=== PATIENT | female | born 1955 | race Caucasian/White ===

== ENCOUNTER 2017-02-18 06:38 | Emergency (ER) | payer OTHER ==
[2017-02-18 07:06] VITALS: BP 126/79; PULSE 74; TEMP 97.6; BMI 31.4
--- NOTE | 2017-02-18 07:13 | PDOC ---
History of Present Illness - General Chief Complaint: Back Pain Stated Complaint: BACK PAIN/ NAUSEU Time Seen by Provider: 02/18/17 07:04 - History of Present Illness Initial Comments: 02/18/17 07:48 The patient is a 61 year old female with a history of HTN, DM, HLD who presents for evaluation of right sided lower back pain. The patient reports gradual onset of right sided lower back/sacral pain with radiation down her right leg. She states that she was taking Advil with good relief, however stopped taking the medication for concern of masking her symptoms. She reports that her pain acutely worsened after waking up this morning prompting her presentation to the ED today. She denies numbness, weakness or urinary incontinence. She denies saddle anesthesia as well. She denies fevers, chills, SOB, chest pain, abdominal pain, or changes with urination or bowel movements. Past History - Past Medical History Allergies/Adverse Reactions: Allergies Allergy/AdvReac Type Severity Reaction Status Date / Time codeine [Codeine] Allergy Mild Verified 02/18/17 07:07 acetaminophen [From Percocet] Allergy Verified 02/18/17 07:07 lactose Allergy Verified 02/18/17 07:07 meperidine HCl [From Demerol] Allergy Verified 02/18/17 07:07 oxycodone HCl [From Percocet] Allergy Verified 02/18/17 07:07 Home Medications: Ambulatory Orders Aspirin [ASA -] 81 mg PO DAILY 02/18/17 Atenolol [Tenormin] 25 mg PO DAILY 02/18/17 Cyclobenzaprine HCl [Flexeril 10 mg] 10 mg PO BID PRN #20 tablet 02/18/17 Hydrochlorothiazide [Hctz -] 12.5 mg PO DAILY 02/18/17 Metformin HCl [Glucophage -] 500 mg PO BID 02/18/17 Simvastatin [Zocor -] 20 mg PO HS 02/18/17 Anemia: No Asthma: No Cancer: No Cardiac Disorders: Yes (palpitations) CVA: No COPD: No CHF: No DVT: No Dementia: No Diabetes: (pre diabetic) GI Disorders: Yes (GERD) Disorders: No HTN: Yes Hypercholesterolemia: Yes Liver Disease: No Seizures: No Thyroid Disease: No - Surgical History Abdominal Surgery: Yes Appendectomy: Yes Cardiac Surgery: Yes Cholecystectomy: Yes Lung Surgery: No Neurologic Surgery: No Orthopedic Surgery: No - Immunization History Immunization Up to Date: Yes - Suicide/Smoking/Psychosocial Hx Smoking Status: No Smoking History: Never smoked Have you smoked in the past 12 months: No Number of Cigarettes Smoked Daily: 0 Information on smoking cessation initiated: No Hx Alcohol Use: No Drug/Substance Use Hx: No Substance Use Type: None Review of Systems - Review of Systems Comments:: 02/18/17 07:52 Constitutional: No fevers, chills, fatigue, malaise HEENT: No Rhinorrhea, nasal congestion, Cardiovascular: No chest pain, syncope, palpitations, lightheadedness Respiratory: No Cough, SOB, Hemoptysis, Gastrointestinal: No Abdominal pain, Nausea, Vomiting, Constipation, Diarrhea, Melena Genitourinary: No Dysuria, Frequency, Urgency, Hesitancy, Hematuria, Flank pain Musculoskeletal: Lower back pain. No Myalgia, arthralgia Skin: No rashes, bruising, pallor Neurologic: No Headache, Dizziness, Numbness, Weakness, or Tingling Psychiatric: No Hallucinations. No SI or HI *Physical Exam - Vital Signs Last Vital Signs Temp Pulse Resp BP Pulse Ox 97.6 F 74 20 126/79 97 02/18/17 07:03 02/18/17 07:03 02/18/17 07:03 02/18/17 07:03 02/18/17 07:03 - Physical Exam Comments: 02/18/17 07:53 General Appearance: Nourished. No Apparent Distress HEENT: EOMI, JOSE. Neck: No Cervical Lymphadenopathy Respiratory/Chest: Lungs Clear, Normal Breath Sounds. No Crackles, Rales, Rhonchi, Wheezing Cardiovascular: Regular Rhythm, Regular Rate. No Murmur, Gallops, Rubs Gastrointestinal/Abdominal: Normal Bowel Sounds, Soft. No Guarding, Rebound, Tenderness Musculoskeletal: No CVA Tenderness Extremity: Normal Capillary Refill Integumentary: Normal Color, Dry, Warm Neurologic: Fully Oriented, Alert, Normal Mood/Affect, Normal Response, Motor Strength 5/5. Positive straight leg raise test. Sensation to light touch and temperature intact in the distal extremities. Normal Range of motion. Medical Decision Making - Medical Decision Making 02/18/17 07:54 The patient is a 61 year old female with a history of HTN, DM, HLD who presents for evaluation of right sided lower back pain. Differential includes but is not limited to: UTI, pyelonephrities, nephrolethiasis, musculoskeletal strain, sciatic back pain. Given the patient's history and physical exam, it is likely her symptoms are due to sciatic back pain given the radiation down her right leg. There are no red flag signs within the patient's history or her physical exam. However we will send a UA to evaluate for other etiologies. We will treat with Ibuprofen and Flexiril and continue to monitor and reassess. 02/18/17 09:01 UA is negative. The patient reports significant improvement with ibuprofen and flexiril and is requesting to go home. We discussed with the patient that the likely case of her symptoms are due to sciatic back pain and would likely require some physical therapy. We are comfortable discharging the patient home at this time with Primary care provider follow up. The patient voiced understanding and is agreeable with the plan. *DC/Admit/Observation/Transfer Diagnosis at time of Disposition: Back pain with sciatica - Discharge Dispostion Disposition: HOME Condition at time of disposition: Improved Admit: No - Prescriptions Prescriptions: Cyclobenzaprine HCl [Flexeril 10 mg] 10 mg PO BID PRN #20 tablet PRN Reason: Back Pain - Referrals Referrals: Eleazar Lauren MD [Primary Care Provider] - - Patient Instructions Printed Discharge Instructions: DI for Back Pain With Sciatica Additional Instructions: Please return to the ER if you experience worsening or concerning symptoms including weakness or numbness in your extremities. Your symptoms are likely due to sciatic back pain. You may use ibuprofen at home over the counter to help manage your symptoms. You will need to call to schedule a follow up appointment with your primary care provider to discuss further management of your symptoms and possible referral for physical therapy within 1 week. - Post Discharge Activity
[2017-02-18] MEDS ORDERED: IBUPROFEN 600 MG TABLET (FP) PO ONE ×2 (07:27→07:45)
[2017-02-18] MEDS ORDERED: CYCLOBENZAPRINE HCL 10 MG TABLET (FP) PO ONE (07:30)
[2017-02-18 07:43] LABS: URINE APPEARANCE CLEAR; URINE BILIRUBIN NEGATIVE (NEGATIVE); URINE BLOOD NEGATIVE (NEGATIVE); URINE COLOR LTYELLOW; URINE GLUCOSE (UA) NEGATIVE (NEGATIVE); URINE KETONE NEGATIVE (NEGATIVE); URINE NITRITE NEGATIVE (NEGATIVE); URINE PROTEIN NEGATIVE (NEGATIVE); URINE UROBILINOGEN NEGATIVE mg/dL (0.2-1.0)
[2017-02-18] MEDS ORDERED: CYCLOBENZAPRINE HCL 10 MG TABLET (FP) ONE (07:45)
--- NOTE | 2017-02-18 08:23 | PDOC ---
Attending Attestation - Resident Resident Name: CynthiaMark - ED Attending Attestation I have performed the following: I have examined & evaluated the patient, The case was reviewed & discussed with the resident, I agree w/resident's findings & plan, Exceptions are as noted - HPI HPI: 02/18/17 08:21 61-year-old female with past medical history of hypertension, diabetes, hyperlipidemia, intermittent chronic lower back pain presents with one week of right lower back pain radiating posteriorly to the right toe. Denies urinary or bowel incontinence. Patient was taken ibuprofen which helped the symptoms but came in to the ED for evaluation. - Physicial Exam PE: 02/18/17 08:22 GENERAL: NAD, AAOx3 Lumbar spine: No tenderness to palpation. Straight leg positive on the right 45 degrees. 2+ DP pulse. Sensation intact throughout. 5/5 strength RLE - Medical Decision Making 02/18/17 08:22 Vital Signs Temp Pulse Resp BP Pulse Ox 97.6 F 74 20 126/79 97 02/18/17 07:03 02/18/17 07:03 02/18/17 07:03 02/18/17 07:03 02/18/17 07:03 Patient's symptoms are consistent with sciatica. We'll trial medications and patient will most likely need physical therapy as an outpatient. Patient verbalizes understanding agrees with plan. I have no suspicion for cord compression at this time.
[2017-02-18 14:01] LABS: URINE LEUK ESTERASE Negative (NEGATIVE)
== END 2017-02-18 09:21 | disposition home or self-care (01) ==
LOC: JER 06:38
DX: M54.41 Lumbago with sciatica, right side (principal); I10 Essential (primary) hypertension; E11.9 Type 2 diabetes mellitus without complications; Z79.84 Long term (current) use of oral hypoglycemic drugs; E78.00 Pure hypercholesterolemia, unspecified
CPT/HCPCS: 81003; 87086; 99282-25

== ENCOUNTER 2019-02-23 15:27 | Emergency (ER) | payer OTHER ==
[2019-02-23 15:34] VITALS: TEMP 98; BMI 28.5
[2019-02-23] MEDS ORDERED: ONDANSETRON 4 MG/2 ML VIAL IVPUSH ONE (16:35)
[2019-02-23] MEDS ORDERED: SODIUM CHLORIDE 1,000 ML IV STA (16:35)
[2019-02-23] MEDS ORDERED: MAG HYDROX/AL HYDROX/SIMETH 30 ML UNIT-DOSE CUP PO ONE (16:38)
[2019-02-23 16:57] LABS: EOS % 0.7 % (0-4.5); HEMATOCRIT 42.4 % (32.4-45.2); HEMOGLOBIN 14.1 GM/dL (10.7-15.3); LYMPH % 41.7 % (8-40); MCH 27.8 pg (25.7-33.7); MCHC 33.3 g/dl (32.0-36.0); MEAN CELL VOLUME 83.6 fl (80-96); MEAN PLT VOLUME 7.7 fl (7.5-11.1); MONO % 6.4 % (3.8-10.2); NEUT % 50.2 % (42.8-82.8); PLATELET COUNT 295 K/MM3 (134-434); RBC 5.07 M/mm3 (3.60-5.2); RDW 14.1 % (11.6-15.6); WHITE BLOOD COUNT 7.9 K/mm3 (4.0-10.0)
[2019-02-23] MEDS ORDERED: MAG HYDROX/AL HYDROX/SIMETH 30 ML UNIT-DOSE CUP ONE (17:02)
[2019-02-23] MEDS ORDERED: ONDANSETRON 4 MG/2 ML VIAL ONE (17:02)
--- NOTE | 2019-02-23 17:04 | PDOC ---
History of Present Illness - General Chief Complaint: Pain Stated Complaint: ABD PAIN Time Seen by Provider: 02/23/19 16:19 History Source: Patient Exam Limitations: No Limitations - History of Present Illness Initial Comments: 02/23/19 16:40 63 yo female pmh of pre diabetes, HTN and HLD, s/p appy and cholecystectomy presents to the ED for 3 days of epigastric and RUQ pain with associated nausea. Pain described as sharp and burning with radiation to the RUQ and R flank made worse right after eating all meals. Pt admits to associated nausea, denies vomiting, fevers/chills, changes in urinary habits, changes in bowel movements, back pain, CP, SOB. Past History - Past Medical History Allergies/Adverse Reactions: Allergies Allergy/AdvReac Type Severity Reaction Status Date / Time codeine [Codeine] Allergy Mild Verified 02/23/19 15:34 lactose Allergy Verified 02/23/19 15:34 meperidine HCl [From Demerol] Allergy Verified 02/23/19 15:34 oxycodone HCl [From Percocet] Allergy Verified 02/23/19 15:34 Home Medications: Ambulatory Orders Aspirin [ASA -] 81 mg PO DAILY 02/18/17 Atenolol [Tenormin] 25 mg PO DAILY 02/18/17 Cyclobenzaprine HCl [Flexeril 10 mg] 10 mg PO BID PRN #20 tablet 02/18/17 Hydrochlorothiazide [Hctz -] 12.5 mg PO DAILY 02/18/17 Simvastatin [Zocor -] 20 mg PO HS 02/18/17 Calcium Carbonate/Simethicone [Maalox Advanced Tab Chew] 1 each PO PRN #20 tab.chew 02/23/19 Omeprazole 20 mg PO BID #14 capsule. 02/23/19 Ondansetron HCl [Zofran] 4 mg PO TID #12 tablet 02/23/19 Anemia: No Asthma: No Cancer: No Cardiac Disorders: Yes (palpitations) CVA: No COPD: No CHF: No DVT: No Dementia: No Diabetes: Yes GI Disorders: Yes (GERD) Disorders: No HTN: Yes Hypercholesterolemia: Yes Liver Disease: No Seizures: No Thyroid Disease: No - Surgical History Abdominal Surgery: Yes Appendectomy: Yes Cardiac Surgery: Yes Cholecystectomy: Yes Lung Surgery: No Neurologic Surgery: No Orthopedic Surgery: No - Immunization History Immunization Up to Date: Yes - Psycho Social/Smoking Cessation Hx Smoking Status: No Smoking History: Never smoked Have you smoked in the past 12 months: No Number of Cigarettes Smoked Daily: 0 Hx Alcohol Use: No Drug/Substance Use Hx: No Substance Use Type: None Review of Systems - Review of Systems Constitutional: No: Chills, Fever Respiratory: No: Shortness of Breath Cardiac (ROS): No: Chest Pain, Edema ABD/GI: Yes: Nausea, Other (epigastric pain adiating to r flank). No: Constipated, Diarrhea, Vomiting : No: Burning, Dysuria, Frequency, Flank Pain Musculoskeletal: No: Back Pain *Physical Exam - Vital Signs Last Vital Signs Temp Pulse Resp BP Pulse Ox 98 F 67 18 168/75 99 02/23/19 15:31 02/23/19 15:31 02/23/19 15:31 02/23/19 15:31 02/23/19 15:31 - Physical Exam General Appearance: Yes: Nourished, Appropriately Dressed. No: Apparent Distress HEENT: positive: EOMI Neck: positive: Supple. negative: Carotid bruit Respiratory/Chest: positive: Lungs Clear, Normal Breath Sounds. negative: Respiratory Distress, Accessory Muscle Use, Crackles, Rales, Rhonchi, Stridor, Wheezing Cardiovascular: positive: Regular Rhythm, Regular Rate, S1, S2. negative: Edema , JVD, Murmur Vascular Pulses: Dorsalis-Pedis (R): 4+, Doralis-Pedis (L): 4+ Gastrointestinal/Abdominal: positive: Flat, Soft, Tenderness (epigastric). negative: Pulsatile Mass, Distended, Guarding, Rebound Musculoskeletal: negative: CVA Tenderness Extremity: positive: Normal Capillary Refill, Normal Inspection, Normal Range of Motion Integumentary: positive: Normal Color, Dry, Warm Neurologic: positive: Fully Oriented, Alert, Normal Mood/Affect, Normal Response ED Treatment Course - LABORATORY CBC & Chemistry Diagram: 02/23/19 16:35 02/23/19 16:35 Medical Decision Making - Medical Decision Making 02/23/19 18:22 63 yo female pmh of pre diabetes, HTN and HLD, s/p appy and cholecystectomy presents to the ED for 3 days of epigastric and RUQ pain with associated nausea. Pain described as sharp and burning with radiation to the RUQ and R flank made worse right after eating all meals. Pt admits to associated nausea, denies vomiting, fevers/chills, changes in urinary habits, changes in bowel movements, back pain, CP, SOB. vitals WNL DDX INLT: gastritis, pancreatitis, gastric ulcer, ACS Labs including trops and EKG ordered due to elderly age female with DM and presenting with epigastric pain Given fluids, maalox and pepcid, re eval pt admits to marked improvement of symptoms, pt feels much better Pt saw GI 1 month prior for similar symptoms, EGD scheduled for 05/01/2019 Pt is safe for DC home with PCP and GI f/u with antacid medication and strict return precautions pt understands and agrees with plan Discharge - Discharge Information Problems reviewed: Yes Clinical Impression/Diagnosis: Abdominal pain Condition: Stable Disposition: HOME - Admission No - Additional Discharge Information Prescriptions: Calcium Carbonate/Simethicone [Maalox Advanced Tab Chew] 1 each PO PRN #20 tab.chew Omeprazole 20 mg PO BID #14 capsule. Ondansetron HCl [Zofran] 4 mg PO TID #12 tablet - Follow up/Referral Referrals: Eleazar Lauren MD [Primary Care Provider] - Charlie Camacho MD [Staff Physician] - - Patient Discharge Instructions Patient Printed Discharge Instructions: DI for Gastroesophageal Reflux Disease (GERD), DI for Abdominal Pain-Adult, DI for Dyspepsia Additional Instructions: Please see your primary doctor within the next 48 hours and see your GI doctor as soon as possible. Have your EGD appointment moved to a closer date if possible. Take the medication prescribed to you for acid reduction. Return to the ER for new or concerning symptoms including but not limited to: chest pain, difficulty breathing, fevers. Thank you - Post Discharge Activity
[2019-02-23 17:20] LABS: ALK PHOS 57 U/L (45-117); ANION GAP 9 MMOL/L (8-16); BILIRUBIN,TOTAL 0.4 mg/dL (0.2-1); BLOOD UREA NITROGEN 12.2 mg/dL (7-18); CALCIUM 9.8 mg/dL (8.5-10.1); CHLORIDE 100 mmol/L (98-107); CO2 29 mmol/L (21-32); CREATININE 0.7 mg/dL (0.55-1.3); GLUCOSE,RANDOM 85 mg/dL (74-106); POTASSIUM 3.4 mmol/L (3.5-5.1); SGOT/AST 18 U/L (15-37); SGPT/ALT 25 U/L (13-61); SODIUM 137 mmol/L (136-145); TOT PROT 7.7 g/dl (6.4-8.2)
[2019-02-23 17:23] LABS: URINE APPEARANCE CLEAR; URINE BILIRUBIN NEGATIVE (NEGATIVE); URINE COLOR YELLOW; URINE GLUCOSE (UA) NEGATIVE (NEGATIVE); URINE KETONE NEGATIVE (NEGATIVE); URINE LEUK ESTERASE NEGATIVE (NEGATIVE); URINE NITRITE NEGATIVE (NEGATIVE); URINE PROTEIN NEGATIVE (NEGATIVE); URINE UROBILINOGEN 0.2 mg/dL (0.2-1.0)
[2019-02-23 18:04] VITALS: BP 140/78; PULSE 65
--- NOTE | 2019-02-23 18:06 | PDOC ---
Documentation entered by Melissa Joseph SCRIBE, acting as scribe for Kylah Segura MD. Kylah Segura MD: This documentation has been prepared by the Jake pierre Maria, SCRIBE, under my direction and personally reviewed by me in its entirety. I confirm that the documentation accurately reflects all work, treatment, procedures, and medical decision making performed by me. Attending Attestation - Resident Resident Name: Heriberto Iyer - ED Attending Attestation I have performed the following: I have examined & evaluated the patient, The case was reviewed & discussed with the resident, I agree w/resident's findings & plan, Exceptions are as noted - HPI HPI: 02/23/19 17:50 The patient is a 63 year old female with a past medical history of HTN, HLD, appendectomy, and cholecystectomy here today for evaluation of epigastric pain. The patient reports that she has had 3 days of epigastric and right upper quadrant pain and notes associated nausea. Patient denies headache, lightheadedness. Denies fever, chills. Denies chest pain, shortness of breath. Denies vomiting, diarrhea. Denies urinary symptoms. Allergies: codeine, lactose, meperidine HCL, oxycodone HCL PCP: Eleazar Denney - Physicial Exam PE: 02/23/19 18:02 wnwd 63 yo female has c/o several days of epigastric pain that radiated to the back head ncat neck supple lungs cta b/l cvs [id number] abd nontender, no rebound, no guarding skin warm and dry neuro [id number] 02/23/19 18:38 - Medical Decision Making 02/23/19 18:14 Labs reviewed and they are essentially unremarkable, potassium equals 3.4 the rest of her labs are normal EKG is normal sinus rhythm She has a negative troponin She does have a history of some dyspepsia and does have an appointment with record press tender for EDG
--- NOTE | 2019-02-24 16:00 | EKG ---
Test Reason : Blood Pressure : / mmHG Vent. Rate : 051 BPM Atrial Rate : 051 BPM P-R Int : 156 ms QRS Dur : 092 ms QT Int : 452 ms P-R-T Axes : 018 -22 014 degrees QTc Int : 416 ms SINUS BRADYCARDIA OTHERWISE NORMAL ECG WHEN COMPARED WITH ECG OF 10-NOV-2017 17:03, T WAVE VARIATION Confirmed by CHANCE SAMS MD ([id number]) on 02/24/2019 3:59:38 PM Referred By: Confirmed By:CHANCE SAMS MD
== END 2019-02-23 18:39 | disposition home or self-care (01) ==
LOC: JER 15:27
PROC: 3E033GC Introduction of Other Therapeutic Substance into Peripheral Vein, Percutaneous Approach (ICD-10-PCS; principal; 2019-02-23)
DX: K21.9 Gastro-esophageal reflux disease without esophagitis (principal); I10 Essential (primary) hypertension; E78.5 Hyperlipidemia, unspecified; E78.00 Pure hypercholesterolemia, unspecified; E11.9 Type 2 diabetes mellitus without complications; Z90.49 Acquired absence of other specified parts of digestive tract; Z88.5 Allergy status to narcotic agent; Z91.02 Food additives allergy status
CPT/HCPCS: 36415; 80053; 81003; 82550; 83690; 84484; 85025; 87077; 87086; 93005; 93010; 99283-25; J7030

== ENCOUNTER 2022-01-07 07:16 | Emergency (ER) | payer OTHER ==
[2022-01-07 07:29] VITALS: BMI 29.5
[2022-01-07 08:01] VITALS: TEMP 97.9
[2022-01-07] MEDS ORDERED: SODIUM CHLORIDE 0.9% 500 ML INFUS.BAG IV ONE (08:06)
[2022-01-07] MEDS ORDERED: ACETAMINOPHEN 1000 MG/100 ML BAG IVPB ONE (08:06)
[2022-01-07] MEDS ORDERED: ACETAMINOPHEN INJECTION 100 ML IVPB ONE (08:19)
[2022-01-07 08:28] LABS: BASO % 0.3 % (0-2.0); EOS % 0.1 % (0-4.5); HEMATOCRIT 43.5 % (32.4-45.2); HEMOGLOBIN 14.1 GM/dL (10.7-15.3); LYMPH % 14.3 % (8-40); MCH 27.1 pg (25.7-33.7); MCHC 32.3 g/dl (32.0-36.0); MEAN CELL VOLUME 83.9 fl (80-96); MEAN PLT VOLUME 7.7 fl (7.5-11.1); MONO % 7.3 % (3.8-10.2); PLATELET COUNT 265 10^3/uL (134-434); RBC 5.19 M/mm3 (3.60-5.2); RDW 14.7 % (11.6-15.6); WHITE BLOOD COUNT 13.3 K/mm3 (4.0-10.0)
[2022-01-07] MEDS ORDERED: POTASSIUM CHLORIDE ORAL LIQUID 20 MEQ/15 ML PO ONE (08:45)
[2022-01-07 08:47] LABS: ALBUMIN 3.5 g/dl (3.4-5.0); BLOOD UREA NITROGEN 17.6 mg/dL (7-18)
[2022-01-07] MEDS ORDERED: POTASSIUM CHLORIDE TABS 20 MEQ TABLET.ER (FP) PO ONE (08:48)
[2022-01-07 08:49] LABS: CREATININE 0.7 mg/dL (0.55-1.3)
[2022-01-07 08:51] LABS: BILIRUBIN,TOTAL 0.9 mg/dL (0.2-1); TOT PROT 7.2 g/dl (6.4-8.2)
[2022-01-07 09:34] LABS: URINE APPEARANCE CLEAR; URINE BILIRUBIN NEGATIVE (NEGATIVE); URINE COLOR YELLOW
[2022-01-07 09:35] LABS: EPI CELLS 12.4 /uL (0-25.1); PH,URINE 6.5 (5.0-8.0); URINE BACTERIA 50.6 /uL (0-1359); URINE KETONE >=80 mg/dl (NEGATIVE); URINE LEUK ESTERASE NEGATIVE (NEGATIVE); URINE NITRITE NEGATIVE (NEGATIVE); URINE PROTEIN 1+ (NEGATIVE); URINE RBC 68.4 /uL (0-23.9); URINE WBC 8.4 /uL (0-25.8)
[2022-01-07] MEDS ORDERED: AMOX TR/POT CLAV 875MG/125MG TABLETS (FP) PO ONE (10:53)
[2022-01-07] MEDS ORDERED: AMOX TR/POT CLAV 875MG/125MG TABLETS (FP) ONE (10:57)
[2022-01-07 11:36] VITALS: BP 111/67; PULSE 68; RESP 16
== END 2022-01-07 11:36 | disposition home or self-care (01) ==
LOC: JER 07:16
PROC: 3E0333Z Introduction of Anti-inflammatory into Peripheral Vein, Percutaneous Approach (ICD-10-PCS; principal; 2022-01-07)
DX: K57.92 Diverticulitis of intestine, part unspecified, without perforation or abscess without bleeding (principal)
CPT/HCPCS: 36415; 74177-TC; 80053; 81003; 83605; 85025; 87086; 93005; 93010; 99285-25; Q9967

== ENCOUNTER 2023-07-10 12:39 | Emergency (ER) | payer OTHER ==
[2023-07-10 12:48] VITALS: BP 140/71; PULSE 76; RESP 18; TEMP 97.6; BMI 30.2
[2023-07-10] MEDS ORDERED: KETOROLAC TROMETHAMINE 30 MG/1 ML VIAL ONE (13:05)
[2023-07-10] MEDS: KETOROLAC TROMETHAMINE 30 MG/1 ML VIAL IM ONE (13:34)
== END 2023-07-10 16:01 | disposition left against medical advice (07) ==
LOC: JERFT 12:39
PROC: 3E0233Z Introduction of Anti-inflammatory into Muscle, Percutaneous Approach (ICD-10-PCS; principal; 2023-07-10)
DX: M25.571 Pain in right ankle and joints of right foot (principal); S99.911A Unspecified injury of right ankle, initial encounter; S89.92XA Unspecified injury of left lower leg, initial encounter; M25.562 Pain in left knee; W01.0XXA Fall on same level from slipping, tripping and stumbling without subsequent striking against object, initial encounter
CPT/HCPCS: 73610-TC-RT-FY; 73630-TC-RT-FY; 99284-25